=== PATIENT | female | born 1980 | race Two or more races ===

== ENCOUNTER 2024-04-26 06:20 | Day surgery (SDC) | payer OTHER, SELFPAY | END 2024-04-26 10:05 | disposition home or self-care (01) | LOC: GI 06:20 | PROVIDERS: ATTENDING PHYSICIAN Internal Medicine Gastroenterology | DX: Z12.11 Encounter for screening for malignant neoplasm of colon (principal); Z80.0 Family history of malignant neoplasm of digestive organs; K64.8 Other hemorrhoids; R12 Heartburn; K31.89 Other diseases of stomach and duodenum; K29.50 Unspecified chronic gastritis without bleeding; B96.89 Other specified bacterial agents as the cause of diseases classified elsewhere | CPT/HCPCS: 43239; G0121; 88305; 88342 ==